=== PATIENT | male | born 1995 | race Caucasian/White ===

== ENCOUNTER 2023-11-29 05:56 | Emergency (ER) | payer OTHER ==
[~2023-11-29] VITALS: Ht 172.7 cm; Wt 72.6 kg
[2023-11-29] MEDS ORDERED: IBUPROFEN 600 MG TAB PO STA (06:17)
[2023-11-29] MEDS ORDERED: IBUPROFEN 600 MG TAB ONE (06:23)
[2023-11-29] MEDS ORDERED: ONDANSETRON HCL 4 MG ORAL DISINTEGRATING TAB PO ONE (06:30)
[2023-11-29] MEDS ORDERED: ONDANSETRON ODT4 MG PO (07:28)
[2023-11-29 07:29] VITALS: BP 116/96; PULSE 83; RESP 17; TEMP 101.8; O2SAT 99
== END 2023-11-29 07:35 | disposition home or self-care (01) ==
LOC: ER 06:00
DX: R50.9 Fever, unspecified (principal); J10.1 Influenza due to other identified influenza virus with other respiratory manifestations; R11.2 Nausea with vomiting, unspecified; R53.81 Other malaise
CPT/HCPCS: 99283; Q0162